=== PATIENT | female | born 1950 | race Caucasian/White ===

== ENCOUNTER 2016-12-08 08:22 | Day surgery (SDC) | payer BC ==
[~2016-12-08 08:22] MED LIST: RINGERS SOLUTION,LACTATED 1,000 ML IV PRN
--- OUTSIDE RECORDS SUMMARY | 2016-12-08 08:26 | XMS REPORT | Continuity of Care Document ---
:1950 Author Organization [facility] ([facility]) Address [address] [place] [address] Phone [phone] Care Team Providers Name Role Phone Justo Chambers Primary Care Provider [phone] Source Comments This disclosure is being made pursuant to the Care Everywhere program, applicable federal and state laws, and may not contain all informaitonavailable regarding this patient.[facility] ([facility]) Active Allergies and Adverse Reactions No Known Allergies Current Medications Prescription Sig. Disp. Refills Start Date End Date Status fluticasone (FLOVENT HFA Use 2 Puffs by Active 220) inhaler inhalation every 12 hours as needed mometasone 50 Use 2 Sprays into Active mcg/Actuation nasal spray both nostrils daily. lovaSTATIN 20 mg tablet Take 20 mg by Active mouth every evening. quinapril 40 mg tablet Take 40 mg by Active mouth every evening. PARoxetine 40 mg tablet Take 40 mg by Active mouth daily. hydrochlorothiazide 12.5 Take 12.5 mg by Active mg tablet mouth daily. aspirin 325 mg tablet Take 325 mg by Active mouth daily ibuprofen 200 mg tablet Take 200 mg by Active mouth every 6 hours as needed docusate 100 mg capsule Take 1 Cap (100 40 Cap 2 12/18/2014 Active mg total) by mouth 2 times daily HYDROmorphone 2 mg tablet Take 1-2 Tabs 60 Tab 0 12/18/2014 Active (2-4 mg total) by mouth every 4 hours as needed sennosides 8.6 mg tablet Take 1-2 Tabs 40 Tab 2 12/18/2014 Active (8.6-17.2 mg total) by mouth daily Active Problems Problem Noted Date Cystocele without uterine prolapse 12/17/2014 HTN (hypertension) HLD (hyperlipidemia) Depression Osteoarthritis Mixed incontinence urge and stress Social History Tobacco Use Types Packs/Day Years Used Date Never Smoker Smokeless Tobacco: Never Used Alcohol Use Drinks/Week oz/Week Comments Yes 3 Cans of beer Last Filed Vital Signs Vital Sign Reading Time Taken Blood Pressure 145/86 01/24/2015 9:10 AM CDT Pulse 60 01/24/2015 9:10 AM CDT Temperature 36.5 C (97.7 F) 01/24/2015 9:10 AM CDT Respiratory Rate 16 12/18/2014 8:00 AM CDT Height 1.702 m (5' 7") 12/17/2014 11:24 AM CDT Weight 88 kg (194 lb 0.1 oz) 01/24/2015 9:10 AM CDT Body Mass Index 30.38 01/24/2015 9:10 AM CDT Oxygen Saturation 97% 12/18/2014 8:00 AM CDT Plan of Care Health Maintenance Due Date Last Done Comments HCV Screening 1950 Hepatitis B Vaccine (1 of 3 - Primary Series) 1950 Tdap Vaccine 1963 Lipid Disorder Screening 1970 Td Vaccine 1970 Cervical Cancer Screening 1982 Mammogram 1992 Colonoscopy 2002 Zoster Vaccine 2012 Influenza Vaccine: Seasonal (#1) 01/27/2016 Results from Last 3 Months Not on file
[2016-12-08] MEDS ORDERED: RINGERS SOLUTION,LACTATED 1,000 ML IV ONE (08:47)
--- NOTE | 2016-12-08 10:16 | OR ---
Operative Report - Dictated Report Narrative: Date: 12/08/2016 Pre: Personal history of colon polyps, Screen for colon cancer Post: Normal colon Procedure: Total colonoscopy Staff surgeon: Kenton Mendoza MD Anesthesia: MAC per MANAGED CARE LIAISON EBL: none Specimen: none Description: After informed consent and appropriate sedation the patient was placed in the left lateral decubitus position. A flexible fiberoptic video colonoscopy was introduced and advanced under direct vision without difficulty to the cecum. the usual landmarks were identified. Preparation was fair but good views were obtained. The findings were of a normal cecum, ascending colon, hepatic flexure, transverse colon, splenic flexure, descending colon, sigmoid colon, and rectum. The mucosal color, vasculature and texture were normal throughout. No suspicious masses were seen. The patient tolerated the procedure well without apparent complications and was discharged from the endoscopy suite in stable condition. RECOMMEND: Repeat colonoscopy 5 years.
[2016-12-08 11:14] VITALS: BP 112/61
== END 2016-12-08 08:23 | disposition home or self-care (01) ==
LOC: AMB 08:22
PROVIDERS: ATTEND Specialist
PROC: 0DJD8ZZ Inspection of Lower Intestinal Tract, Via Natural or Artificial Opening Endoscopic (ICD-10-PCS; principal; 2016-12-08 09:15)
DX: Z12.11 Encounter for screening for malignant neoplasm of colon (principal); I10 Essential (primary) hypertension; J45.909 Unspecified asthma, uncomplicated; E78.00 Pure hypercholesterolemia, unspecified; M19.90 Unspecified osteoarthritis, unspecified site; F32.9 Major depressive disorder, single episode, unspecified; Z68.29 Body mass index [BMI] 29.0-29.9, adult; Z86.010 Personal history of colon polyps